=== PATIENT | female | born 1955 | race Caucasian/White ===

== ENCOUNTER → 2017-09-24 | Outpatient (REF) | payer OTHER ==
[2017-09-24 11:23] LABS: BASO # 0.1 10^3/uL (0.0-0.2); BASO % 1.5 % (0.0-1.0); EOS # 0.3 10^3/uL (0.0-0.50); EOS % 5.4 % (0.0-3.0); HEMATOCRIT 36.7 % (36.0-47.0); HEMOGLOBIN 11.9 g/dl (12.0-15.5); IMMATURE GRANULOCYTE % 0.6 % (0-3.0); LYMPH # 1.8 10^3/uL (1.5-4.5); LYMPH % 34.3 % (24.0-44.0); MEAN CORPUSCULAR HEMOGLOBIN 25.8 pg (27.0-33.0); MEAN CORPUSCULAR HGB CONC 32.4 g/dl (32.0-36.5); MEAN CORPUSCULAR VOLUME 79.4 fl (80.0-96.0); MONO # 0.3 10^3/uL (0.0-0.8); NEUTROPHILS # 2.8 10^3/uL (1.8-7.7); NEUTROPHILS % 53.2 % (36.0-66.0); PLATELET COUNT, AUTOMATED 382 10^3/uL (150-450); RED BLOOD COUNT 4.62 10^6/uL (4.00-5.40); RED CELL DISTRIBUTION WIDTH 13.4 % (11.5-14.5); WHITE BLOOD COUNT 5.2 10^3/uL (4.0-10.0)
[2017-09-24 11:53] LABS: TOTAL 25(OH) VITAMIN D 16.1 NG/ML (30.0-100.0)
[2017-09-24 12:02] LABS: ALBUMIN/GLOBULIN RATIO 1.03 (1.00-1.93); ALKALINE PHOSPHATASE 88 U/L (45-117); ALT/SGPT 42 U/L (12-78); ANION GAP 6 MEQ/L (8-16); AST/SGOT 18 U/L (7-37); BILIRUBIN,TOTAL 0.3 MG/DL (0.2-1.0); BLOOD UREA NITROGEN 10 MG/DL (7-18); CALCIUM LEVEL 8.9 MG/DL (8.8-10.2); CARBON DIOXIDE LEVEL 28 MEQ/L (21-32); CHLORIDE LEVEL 104 MEQ/L (98-107); CREATININE FOR GFR 0.62 MG/DL (0.55-1.30); GLOMERULAR FILTRATION RATE > 60.0 (>45); GLUCOSE, FASTING 233 MG/DL (70-100); RHEUMATOID FACTOR QUANT < 10.0 IU/ML (<15.0); SODIUM LEVEL 138 MEQ/L (136-145); TOTAL PROTEIN 7.9 GM/DL (6.4-8.2)
[2017-09-24 12:11] LABS: DRVV SCREEN 38.7 SEC; ERYTHROCYTE SEDIMENTATION RATE 24 mm/hr (0-30)
[2017-09-24 12:20] LABS: PTT LUPUS TYPE ANTICOAG SCREEN 0.9 (0-1.2)
[2017-09-26 00:08] LABS: ANGIOTENSIN 1 CONVERTING ENZYM 5 U/L (14-82); ANTI DOUBLE STRAND-DNA AB 2 IU/mL (0-9); ANTINUCLEAR ANTIBODIES DIRECT Negative (Negative); Lyme Disease IgG/IgM Antibodie <0.91 ISR (0.00-0.90); Lyme Disease IgM Ab Quantitati <0.80 index (0.00-0.79); SJOGREN'S ANTI SS-A <0.2 AI (0.0-0.9); SJOGREN'S ANTI SS-B <0.2 AI (0.0-0.9)
== END ==
LOC: M LABNEURO 10:22
DX: R51 Headache (principal); R42 Dizziness and giddiness
CPT/HCPCS: 84443

== ENCOUNTER → 2019-03-23 | Outpatient (CLI) | payer OTHER ==
[~2019-03-23] MED LIST: ACCU1TAB2 PO; CLAR5TAB PO; GLIM2TAB2 PO; JANU100T PO; METF500T13 PO; VICT18IN SC; VITA1CAP14 PO
[2019-03-23 18:11] LABS: HEMATOCRIT 38.2 % (36.0-47.0); HEMOGLOBIN 12.2 g/dl (12.0-15.5); MEAN CORPUSCULAR HEMOGLOBIN 26.6 pg (27.0-33.0); MEAN CORPUSCULAR HGB CONC 31.9 g/dl (32.0-36.5); MEAN CORPUSCULAR VOLUME 83.2 fl (80.0-96.0); PLATELET COUNT, AUTOMATED 412 10^3/uL (150-450); RED BLOOD COUNT 4.59 10^6/uL (4.00-5.40); WHITE BLOOD COUNT 7.9 10^3/uL (4.0-10.0)
[2019-03-23 18:37] LABS: BLOOD UREA NITROGEN 14 MG/DL (7-18); CALCIUM LEVEL 9.4 MG/DL (8.8-10.2); CARBON DIOXIDE LEVEL 29 MEQ/L (21-32); CHLORIDE LEVEL 101 MEQ/L (98-107); CREATININE FOR GFR 0.68 MG/DL (0.55-1.30); GLOMERULAR FILTRATION RATE > 60.0 (>45); GLUCOSE, FASTING 132 MG/DL (70-100); POTASSIUM SERUM 4.4 MEQ/L (3.5-5.1); SODIUM LEVEL 138 MEQ/L (136-145)
== END ==
LOC: M SMT 14:03
PROVIDERS: ATTEND Nurse Practitioner Women's Health
DX: Z01.818 Encounter for other preprocedural examination (principal); N20.0 Calculus of kidney

== ENCOUNTER → 2019-03-23 | Outpatient (REF) | payer OTHER ==
[~2019-03-23] MED LIST changes: +GLIM2TAB PO; -GLIM2TAB2 PO
[2019-03-23 13:45] LABS: APPEARANCE, URINE CLEAR (CLEAR); BACTERIA, URINE AUTO NEGATIVE (NEGATIVE); BILIRUBIN, URINE AUTO NEGATIVE (NEGATIVE); BLOOD, URINE BLOOD NEGATIVE (NEGATIVE); COLOR, URINE STRAW (YELLOW); GLUCOSE, URINE (UA) AUTO NEGATIVE (NEGATIVE); KETONE, URINE AUTO NEGATIVE (NEGATIVE); LEUKOCYTE ESTERASE, URINE AUTO NEGATIVE (NEGATIVE); NITRITE, URINE AUTO NEGATIVE (NEGATIVE); PROTEIN, URINE AUTO NEGATIVE (NEGATIVE); RBC, URINE AUTO 0 /HPF (0-3); SPECIFIC GRAVITY URINE AUTO 1.012 (1.002-1.035); SQUAMOUS EPITHELIAL CELL UR AU 0 /HPF (0-6); UROBILINOGEN, URINE AUTO 0.2 mg/dL (0.0-2.0); WBC, URINE AUTO 1 /HPF (0-3)
== END ==
LOC: M SMT 12:56
PROVIDERS: ATTEND Nurse Practitioner Women's Health
DX: N20.0 Calculus of kidney (principal)

== ENCOUNTER → 2019-03-30 | Outpatient (CLI) | payer OTHER ==
[~2019-03-30] MED LIST changes: -GLIM2TAB PO; +GLIM2TAB2 PO
--- NOTE | 2019-03-30 18:41 | ECGEPIP ---
[facility] Test Date: 2019-03-30 Pat Name: ANTONINA MADDEN Department: Room: - Gender: Female Media Monitor: RF : 1955 Requested By: STANISLAW Marquez Order Number: [id number] Reading MD: Rivas Shukla Measurements Intervals [place] Rate: 85 P: 55 SD: 156 QRS: -10 QRSD: 101 T: -11 QT: 351 QTc: 418 Interpretive Statements SINUS RHYTHM QS pattern with ST/T-wave abnormalities III and aVF; rule out prior IWMI No prior tracing for comparison. Clincal correlation advised Electronically Signed on 03-30-2019 18:41:22 EDT by Rivas Shukla
== END ==
LOC: M EKG 14:28
PROVIDERS: ATTEND Urology
DX: Z01.818 Encounter for other preprocedural examination (principal)

== ENCOUNTER 2019-04-02 06:05 | Day surgery (SDC) | payer OTHER ==
[~2019-04-02] VITALS: Ht 170.2 cm; Wt 80.7 kg
[2019-04-02 06:59] LABS: INR 0.92; PROTHROMBIN TIME 12.1 SECONDS (11.8-14.0)
[2019-04-02] MEDS ORDERED: LR 1,000 ML IV ONE (07:00)
[2019-04-02] MEDS ORDERED: ceFAZolin SOD 2 GM in IV 1 EA IV ONE (07:00)
--- NOTE | 2019-04-02 07:33 | REP ---
Clinical: Kidney stone. Technique: Single supine view of the abdomen and pelvis. Findings: 7 mm calculus overlies the lower pole left kidney. Further evaluation of the urinary tract is limited due to overlying bowel gas and technique. No bowel obstruction. No organomegaly. Skeletal structures demonstrate degenerative changes to the spine and hips. Impression: 1. 7 mm nonobstructing left lower pole kidney stone Electronically Signed by Philip Crain MD 04/02/2019 07:25 A
[2019-04-02] MEDS ORDERED: PROPOFOL 200 MG/20 ML VIAL As Ordered ONE (07:53)
[2019-04-02] MEDS ORDERED: ONDANSETRON 4MG/2ML VIAL (J2405) As Ordered ONE (07:53)
[2019-04-02] MEDS ORDERED: LIDOCAINE 2% INJ 100 MG/5 ML SDV (FOR ANES.) As Ordered ONE (07:53)
[2019-04-02] MEDS ORDERED: MIDAZOLAM INJ 2 MG/2 ML VIAL (J2250) As Ordered ONE (07:58)
[2019-04-02] MEDS ORDERED: fentaNYL 100 MCG/2 ML INJECTION (J3010) As Ordered ONE (07:59)
[2019-04-02] MEDS ORDERED: SCOPOLAMINE 1MG TRANSDERMAL PATCH TOP ONE (08:00)
[2019-04-02 09:40] VITALS: BP 128/68
--- NOTE | 2019-04-02 11:25 | RO ---
DATE OF PROCEDURE: 04/02/2019 PREPROCEDURE DIAGNOSIS: Left kidney stone. POSTPROCEDURE DIAGNOSIS: Left kidney stone. PROCEDURE: Left extracorporeal shock wave lithotripsy. SURGEON: Victorino Pennington MD LITERACY EDUCATION PROFESSOR: None. ANESTHESIA: General. OPERATIVE INDICATIONS: This is a 63-year-old female who was found to have an approximate 8 mm left kidney stone. She was brought to the operating room today for the above listed procedure. DESCRIPTION OF THE PROCEDURE: The patient was brought to the operating room and monitored anesthesia care (MAC) anesthesia was administered. Prophylactic antibiotics were infused. She was then placed in the supine position in preparation for a left sided extracorporeal shock wave lithotripsy. Fluoroscopy was utilized to monitor stone position and fragmentation throughout the procedure. Shock waves were then delivered to the left sided kidney stone ungated. There were no arrhythmias. The stone did appear to fragment well. After 2500 shocks, the procedure was concluded. The patient was then awakened from anesthesia and transferred to the recovery room in stable condition. ESTIMATED BLOOD LOSS: 0 mL. COMPLICATIONS: None. SPECIMENS: None. PLAN: The patient will followup in the clinic in a few weeks with imaging prior to assess residual stone burden. LV
== END 2019-04-02 10:00 | disposition home or self-care (01) ==
LOC: M SDC 06:05
PROVIDERS: ATTEND Urology
DX: N20.0 Calculus of kidney (principal); E11.9 Type 2 diabetes mellitus without complications; I10 Essential (primary) hypertension; E78.5 Hyperlipidemia, unspecified; Z79.84 Long term (current) use of oral hypoglycemic drugs; Z87.891 Personal history of nicotine dependence; Z79.899 Other long term (current) drug therapy; Z88.1 Allergy status to other antibiotic agents
CPT/HCPCS: 36415; 50590; 74018; 85610; J0690; J2250; J2405; J3010

== ENCOUNTER → 2019-04-23 | Outpatient (CLI) | payer OTHER ==
--- NOTE | 2019-04-23 15:38 | REP ---
Single view abdomen: 04/23/2019. Indication: Renal calculus. Comparison: 04/02/2019. Findings: The previously described renal calculus on the left has significantly diminished in size and is faintly visible on the current study. There is no bowel obstruction or additional acute abnormalities of the abdomen. Impression: The previous left renal calculus is barely visualized on the current film. Electronically Signed by Dave Peterson DO 04/23/2019 03:30 P
== END ==
LOC: M RAD 14:03
PROVIDERS: ATTEND Nurse Practitioner Women's Health
DX: N20.0 Calculus of kidney (principal)

== ENCOUNTER → 2021-02-17 | Outpatient (REF) | payer BC ==
[~2021-02-17] MED LIST changes: -GLIM2TAB2 PO; +GLIM2TAB4 PO
== END ==
LOC: M LAB REF 12:25
PROVIDERS: ATTEND Ophthalmology
DX: H00.12 Chalazion right lower eyelid (principal)